=== PATIENT | male | born 1940 | race Caucasian/White ===

== ENCOUNTER 2018-05-27 03:09 | Inpatient (IN) | payer MEDICARE, MEDICAID ==
[~2018-05-27] VITALS: Ht 177.8 cm; Wt 89.4 kg
[2018-05-27] MEDS: NOREPINEPHRINE 4 MG in SODIUM CHLORIDE 0.9% 246 ML IV PRN ×2 (03:15→13:42)
--- NOTE | 2018-05-27 03:15 | NUR ---
PT PRESENTS TO ED FROM [facility], FROM AMBULANCE. BROUGHT TO [facility] ED FOR NOT ABLE TO GET OUT OF BED AND APPEARED CYANOTIC. GIVEN 1 ROUND OF ALBUTEROL AND PLACED ON 10 L NRB. IN [facility], DX W/ SEPTIC PNEUMONIA W/ SEVERE HYPOXIA. 1 G ROCEPHIN AND 500 MG ZITHROMAX GIVEN IN [facility] WELL ANOTHER ALBUTEROL TX. PT PLACED ON LEVO TX OF 8 MCG/MIN FOR HYPOTENSION. PT TAKEN OFF BIPAP PRIOR TO ARRIVAL TO THIS ED. PT 82-96% ON NRB 15L IN ED UPON ARRIVAL. PT TITRATED TO 6 MCG/MIN LEVOPHED PER MD ORDER UPON ADMIT TO ED TO ATTEMPT TO TITRATE PT OFF OF LEVO PERIPHERAL.
--- NOTE | 2018-05-27 03:19 | NUR ---
PT SIGNED CONSENT FOR CENTRAL LINE WHILE STILL A+Ox4.
--- NOTE | 2018-05-27 03:20 | NUR ---
PT APPEARING TO BE MORE AND MORE RESTLESS AND NO LONGER A+Ox4. PT SATS IN LOW 80'S-LOW 90'S ON NRB. MD AND RT NOTIFIED AND PT PLACED IN BIPAP.
--- NOTE | 2018-05-27 03:25 | NUR ---
PT BP STILL MAINTAINED ABOVE MAP OF 60 AND MD ORDERED LEVO PERIPHERAL DOWN TO 4MCG/MIN. DROPPED TO 4MCG/MIN AT THIS TIME.
[2018-05-27] MEDS ORDERED: SODIUM CHLORIDE FLUSH 10ML SYR IVF ONE (03:30)
--- NOTE | 2018-05-27 03:33 | NUR ---
PT DESAT TO MID 80'S AT THIS TIME AND APPEARING RESTLESS AND NOT ANSWERING QUESTIONS FROM STAFF. MD NOTIFIED AND RSI INITIATED PER MD AT THIS TIME.
[2018-05-27 03:37] LABS: BASOPHILS % (AUTO) 0 % (0-1); EOSINOPHILS % (AUTO) 0 % (1-7); LYMPHOCYTES # (AUTO) 0.35 x10^3/uL (1-3.4); LYMPHOCYTES % (AUTO) 5 % (22-44); MD NO; MEAN CORPUSCULAR HEMOGLOBIN 31.4 pg (27.5-34.5); MEAN CORPUSCULAR VOLUME 95.3 fL (81-97); MONOCYTES # (AUTO) 0.05 x10^3/uL (0.2-0.8); MONOCYTES % (AUTO) 1 % (2-9); NEUTROPHILS % (AUTO) 94 % (42-75); PLATELET COUNT 207 x10^3/uL (130-400); RED BLOOD COUNT 4.89 x10^6/uL (4.38-5.82)
--- NOTE | 2018-05-27 03:40 | NUR ---
PT TUBED SUCCESSFULLY W/ 160 MG OF SUCCINYLCHOLINE AND 20 MG OF ETOMIDATE PER EMERGENT INTUBATION. Addendum: 05/27/18 at 0523 by [email or web address] PT TUBED SUCCESSFULLY W/ 160 MG OF SUCCINYLCHOLINE AND 20 MG OF ETOMIDATE PER EMERGENT INTUBATION. AUSCULATION OF ET EQUAL RISE AND FALL OF CHEST AND CLEAR BREATH SOUNDS IN ALL ANDERSON. PROPER COLOR CHANGE IN CO2 INDICATOR. Addendum: 05/27/18 at 0531 by [email or web address] PT TUBED SUCCESSFULLY W/ 160 MG OF SUCCINYLCHOLINE AND 20 MG OF ETOMIDATE PER ERP ADMIN.
--- NOTE | 2018-05-27 03:40 | NUR ---
PT BP DROPPED TO INSUFFICIENT BP AND LEVO INCREASED TO 6 MCG/MIN.
--- NOTE | 2018-05-27 03:40 | NUR ---
28 AT THE LIP FOR ET TUBE.
[2018-05-27 03:48] LABS: INTERNATIONAL NORMALIZED RATIO 1.25 (0.93-1.1)
--- NOTE | 2018-05-27 03:48 | NUR ---
OG TUBE PLACED AND CONFIRMED BY AUSCULTATION AND AND ASPIRATION. CATHETER W/ TEMP PROBED APPLIED VIA STERILE TECHNIQUE AND PT SOFT RESTRAINTS APPLIED FOR PT SAFETY.
[2018-05-27 03:49] LABS: ALANINE AMINOTRANSFERASE 27 U/L (12-78); ALBUMIN 3.4 g/dL (3.4-5.0); ANION GAP 5 mmol/L (5-15); CHLORIDE 113 mmol/L (98-107)
[2018-05-27 03:54] LABS: ALKALINE PHOSPHATASE 86 U/L (45-117); BILIRUBIN,TOTAL 0.5 mg/dL (0.2-1.0); CREATININE 1.87 mg/dL (0.7-1.3); TOTAL PROTEIN 6.8 g/dL (6.4-8.2); TROPONIN I 0.059 ng/mL (0.000-0.045)
--- NOTE | 2018-05-27 03:55 | NUR ---
PT FIGHTING VENT AND PROPOFOL UNABLE TO BE STARTED DUE TO PRESSURE. 5 MG VERSED PUSHED FOR PT COMFORTABILITY, PER MD ORDER. RESPONDED WELL TO MED.
[2018-05-27] MEDS ORDERED: SUCCINYLCHOLINE 20 MG/ML, 10ML IVPush ONE (04:00)
[2018-05-27] MEDS ORDERED: LORazepam 2 MG/ML, 1ML IVPush ONE (04:00)
[2018-05-27] MEDS ORDERED: MIDAZOLAM 1 MG/ML, 5ML IVP ONE (04:00)
[2018-05-27] MEDS ORDERED: ETOMIDATE 20 MG/10 ML IV ONE (04:00)
--- NOTE | 2018-05-27 04:02 | NUR ---
5 MG VERSED PUSHED AT THIS TIME FOR FIGHTING VENT PER MD ORDER.
[2018-05-27] MEDS: PROPOFOL 100 ML IV PRN ×3 (04:06→18:32)
--- NOTE | 2018-05-27 04:06 | NUR ---
PT BP ACCEPTABLE FOR PROPOFOL AND 5MCG/KG/MIN INITIATED PER MD ORDER.
--- NOTE | 2018-05-27 04:08 | NUR ---
CENTRAL LINE INITIATED AT THIS TIME AND AWAITING XR FOR USE OF LEVOPHED.
--- NOTE | 2018-05-27 04:28 | NUR ---
CENTRAL LINE OKAYED BY XR AND ERP ORDER. LEVOPHED INITIATED ON CENTRAL LINE.
[2018-05-27] MEDS ORDERED: FUROSEMIDE 40 MG/4 ML IV ONE (04:30)
[2018-05-27] MEDS ORDERED: SODIUM CHLORIDE 0.9% 1,000ML IVBOLUS ONE (04:30)
[2018-05-27] MEDS ORDERED: ASPIRIN 300 MG SUPP PR ONE (04:30)
[2018-05-27] MEDS ORDERED: FUROSEMIDE 20 MG/2 ML ONE (04:58)
--- NOTE | 2018-05-27 05:05 | NUR ---
VSS ON ALL DRIPS AND PT TOLERATING TREATMENT WELL. WCTM.
--- NOTE | 2018-05-27 05:45 | NUR ---
AWAITING ADM BED. PT VSS. WCTM.
--- NOTE | 2018-05-27 06:10 | NUR ---
[employer]ING [employer] AT BEDSIDE AT THIS TIME.
[2018-05-27 06:26] LABS: MICROSCOPIC INDICATED
[2018-05-27] MEDS ORDERED: SENNA/DOCUSATE TABLET NG PRN (06:30)
[2018-05-27] MEDS ORDERED: ACETAMINOPHEN 650 MG/20.3 ML UDC NG PRN (06:30)
[2018-05-27] MEDS ORDERED: PHARMACY MAY ADJ FOR RENAL FX MC SCH (06:30)
[2018-05-27] MEDS ORDERED: BISACODYL 10 MG SUPP PR PRN (06:30)
[2018-05-27] MEDS ORDERED: LIDOCAINE-MPF 1%, 2ML ENDO PRN (06:30)
[2018-05-27] MEDS ORDERED: SODIUM CHLORIDE 0.9% 1,000 ML IV SCH (06:30)
[2018-05-27] MEDS ORDERED: SENNOSIDES 8.8 MG/5 ML ORAL SOL NG PRN (06:30)
[2018-05-27] MEDS ORDERED: LACTULOSE 20 GM/30 ML UDC NG PRN (06:30)
[2018-05-27 06:36] LABS: CULTURE INDICATED? YES
[2018-05-27] MEDS ORDERED: HEPARIN 5,000 UNITS/ML, 1ML ONE (06:39)
[2018-05-27] MEDS: HEPARIN 5,000 UNITS/ML, 1ML SQ SCH ×3 (06:44→22:04)
[2018-05-27] MEDS ORDERED: CEFTRIAXONE PMX 2GM/50ML 50 ML IV SCH (07:00)
--- NOTE | 2018-05-27 07:06 | NUR ---
RECEIVED REPORT FROM STANISLAW OLSEN RN. PT RESTING ON [facility]. NADN. FOURNIER.
--- NOTE | 2018-05-27 07:08 | NUR ---
BEDSIDE REPORT TO ABUNDIO BYRD.
--- NOTE | 2018-05-27 08:19 | NUR ---
PT RESTING ON [facility]. CECILIA. VSS. VENT IN PLACE.
[2018-05-27] MEDS ORDERED: CEFTRIAXONE PMX 2GM/50ML 50 ML ONE (08:23)
[2018-05-27] MEDS ORDERED: methylPREDNISolone SOD SUCC 125 MG/2 ML ONE ×2 (08:23→15:23)
[2018-05-27] MEDS ORDERED: PANTOPRAZOLE 40 MG IV ONE (08:23)
[2018-05-27] MEDS: methylPREDNISolone SOD SUCC 125 MG/2 ML IVPush SCH ×2 (08:26→15:29)
[2018-05-27] MEDS: PANTOPRAZOLE 40 MG IV IV SCH (08:26)
--- NOTE | 2018-05-27 08:46 | NUR ---
PT REPOSITIONED FOR COMFORT. BUE ROM PERFORMED. PT RESTING ON GURNEY. NADN. VSS. PT REMAINS INTUBATED.
--- NOTE | 2018-05-27 09:54 | NUR ---
SPOKE W/ DR. WATTS WHO STATES TO DO ALL XR'S AND TO CHANGE ABD/PELVIS W/O CONT TO ABD/PELVIS CT W/ ORAL CONTRAST.
--- NOTE | 2018-05-27 10:04 | NUR ---
PT COUGHING. MEDS READJUSTED. HOUSEKEEPING NOTIFIED OF NEED FOR HOSPITAL BED.
--- NOTE | 2018-05-27 10:40 | NUR ---
RECEIVED REPORT FROM ABUNDIO Masters RN. ET 28 AT THE [facility], 8 ET TUBE. VENTILATOR SETTINGS: PEEP 5, TV 500, 18 RESP, 80%.
[2018-05-27] MEDS ORDERED: PROPOFOL 100 ML IV ONE (10:43)
--- NOTE | 2018-05-27 11:00 | NUR ---
PT CHEWING ON ET TUBE. PROPOFOL SEDATION INCREASED.
--- NOTE | 2018-05-27 11:07 | NUR ---
PT MOVED TO HOSPITAL BED. REMAINDER OF ORAL CONTRAST GIVEN. WAITING FOR CCU BED AND CT TO BE DONE.
--- NOTE | 2018-05-27 11:09 | NUR ---
REPORT GIVEN TO DASHAWN Zuniga RN.
--- NOTE | 2018-05-27 11:13 | NUR ---
OUTPUT: 1300 OF URINE. INPUT: 900 OF ORAL CONTRAST AND 120 OF WATER.
--- NOTE | 2018-05-27 11:14 | NUR ---
RT SAIRA AT BEDSIDE. ET TUBE PULLED BACK TO 24 AT THE LIP.
[2018-05-27] MEDS ORDERED: ROCURONIUM 10 MG/ML,10ML ONE (11:19)
[2018-05-27] MEDS ORDERED: PROPOFOL 10 MG/ML, 50ML ONE (11:19)
[2018-05-27] MEDS ORDERED: FURO20TA3 PO (11:23)
[2018-05-27] MEDS ORDERED: ROSU40TA PO (11:23)
[2018-05-27] MEDS ORDERED: EZET1TAB35 PO (11:23)
[2018-05-27] MEDS ORDERED: MULT-658 PO (11:23)
[2018-05-27] MEDS ORDERED: NIAC750T11 PO (11:23)
[2018-05-27] MEDS ORDERED: ASPI-496 PO (11:23)
--- NOTE | 2018-05-27 11:24 | NUR ---
EQUAL BREATH SOUNDS BILATERALLY AUSCULATED AFTER MOVEMENT OF ET TUBE.
[2018-05-27 11:51] LABS: TROPONIN I 0.042 ng/mL (0.000-0.045)
--- NOTE | 2018-05-27 12:19 | NUR ---
PT TO AND FROM CT FOR CT ABD. DR. REYNOLDS AT BEDSIDE. ABDOMEN APPEARS TO HAVE SWOLLEN MORE. NO BOWEL SOUNDS DETECTED. SINCE CT ABD WAS DONE, LOW INTERMITTENT SUCTION APPLIEN TO OG TUBE.
--- NOTE | 2018-05-27 12:48 | NUR ---
REQUESTED OF DR. WATTS ABG DUE TO ET COS HOLDING STEADY AT 24. PT RATE TO BE DROPPED TO 16 AND ABG WILL BE DONE 15 MINUTES LATER.
[2018-05-27] MEDS ORDERED: ONDANSETRON 2MG/ML, 2ML IVPush PRN (13:00)
[2018-05-27] MEDS: SODIUM CHLORIDE 0.9% 1,000 ML IV SCH ×2 (13:09→23:50)
[2018-05-27 13:26] LABS: ANION GAP 11 mmol/L (5-15); CHLORIDE 112 mmol/L (98-107); CREATININE 1.73 mg/dL (0.7-1.3)
--- NOTE | 2018-05-27 13:35 | NUR ---
RT AT BEDSIDE COMPLETING MOUTHCARE.
[2018-05-27] MEDS ORDERED: PIPERACILLIN/TAZO/PMX 3.375GM 50 ML ONE (13:43)
[2018-05-27] MEDS: PIPERACILLIN/TAZO/PMX 3.375GM 50 ML IV SCH ×2 (13:46→22:04)
--- NOTE | 2018-05-27 13:56 | NUR ---
800 MLS OF CLEAR FLUID SUCTIONED FROM OG TUBE WITH LOW,INTERMIITENT SUCTION SINCE OG WAS PLACED.
--- NOTE | 2018-05-27 13:59 | NUR ---
PT SCHEDULED TO GO TO SURGERY AT [address] ABDOMEN[address]
[2018-05-27] MEDS ORDERED: VANCOMYCIN PMX 1GM/200ML 200 ML IV ONE (14:00)
[2018-05-27] MEDS ORDERED: VANCOMYCIN PER PHARMACY MC PRN (14:00)
[2018-05-27] MEDS ORDERED: PROPOFOL 10 MG/ML, 100ML IV ONE (14:02)
[2018-05-27] MEDS ORDERED: MIDAZOLAM 1 MG/ML, 5ML ONE (14:02)
[2018-05-27] MEDS ORDERED: ETOMIDATE 20 MG/10 ML ONE (14:02)
[2018-05-27] MEDS ORDERED: SUCCINYLCHOLINE 20 MG/ML, 10ML ONE (14:02)
--- NOTE | 2018-05-27 14:17 | NUR ---
REPORT TO LONNIE BYRD IN SURGERY. PT TO GO TO SURGERY AT 1515.
--- NOTE | 2018-05-27 14:18 | NUR ---
ECHO BEING DONE AT BEDSIDE.
[2018-05-27] MEDS ORDERED: VANCOMYCIN 2,000 MG in SODIUM CHLORIDE 0.9% 500 ML IV ONE (14:30)
[2018-05-27] MEDS ORDERED: VANCOMYCIN 1,800 MG in SODIUM CHLORIDE 0.9% 250 ML IV ONE (14:30)
[2018-05-27 15:11] LABS: TROPONIN I 0.045 ng/mL (0.000-0.045)
--- NOTE | 2018-05-27 15:41 | NUR ---
EARNESTINE RN: PT TO GO TO ICU-9 AFTER OR.
--- NOTE | 2018-05-27 15:44 | NUR ---
PT TAKEN TO SURGERY WHILE THIS RN WAS GIVEN TO REPORT TO RAOUL IN ICU.
[2018-05-27] MEDS ORDERED: MIDAZOLAM 1 MG/ML, 2ML ONE ×2 (16:07)
[2018-05-27] MEDS ORDERED: FENTANYL PF 100 MCG/2ML ONE (16:13)
[2018-05-27] MEDS ORDERED: PHARMACOKINETIC CONSULTATION MC ONE (18:30)
[2018-05-27] MEDS ORDERED: PHARMACOKINETIC MONITORING MC PRN (18:30)
[2018-05-27] MEDS ORDERED: NOREPINEPHRINE 4 MG in SODIUM CHLORIDE 0.9% 246 ML IV PRN (21:30)
[2018-05-27 21:38] LABS: TROPONIN I 0.044 ng/mL (0.000-0.045)
[2018-05-27 22:30] VITALS: BP 126/85
[2018-05-28] MEDS: methylPREDNISolone SOD SUCC 125 MG/2 ML IVPush SCH ×2 (00:13→07:32)
[2018-05-28] MEDS: PROPOFOL 100 ML IV PRN ×3 (01:54→18:00)
[2018-05-28] MEDS: NOREPINEPHRINE 8 MG in SODIUM CHLORIDE 0.9% 242 ML IV PRN ×2 (03:35→22:18)
[2018-05-28 04:00] VITALS: BP 84/64
[2018-05-28 04:40] LABS: ANION GAP 8 mmol/L (5-15); CALCIUM 7.5 mg/dL (8.5-10.1); CHLORIDE 114 mmol/L (98-107); CREATININE 1.83 mg/dL (0.7-1.3)
[2018-05-28 04:50] LABS: MEAN CORPUSCULAR HEMOGLOBIN 31.3 pg (27.5-34.5); MEAN CORPUSCULAR HGB CONC 33.5 g/dL (33.2-36.2); MEAN CORPUSCULAR VOLUME 93.4 fL (81-97); MEAN PLATELET VOLUME 9.2 fL (7.4-10.4); PLATELET COUNT 227 x10^3/uL (130-400); RED BLOOD COUNT 4.96 x10^6/uL (4.38-5.82); RED CELL DISTRIBUTION WIDTH 16.9 % (9.4-14.8)
[2018-05-28 05:37] LABS: BASOPHILS % (AUTO) 0 % (0-1); EOSINOPHILS % (AUTO) 0 % (1-7); LYMPHOCYTES # (AUTO) 0.37 x10^3/uL (1-3.4); LYMPHOCYTES % (AUTO) 3 % (22-44); MD SCAN; MONOCYTES # (AUTO) 0.34 x10^3/uL (0.2-0.8); MONOCYTES % (AUTO) 3 % (2-9); NEUTROPHILS # (AUTO) 13.03 x10^3/uL (1.8-6.8); NEUTROPHILS % (AUTO) 95 % (42-75)
[2018-05-28] MEDS: HEPARIN 5,000 UNITS/ML, 1ML SQ SCH ×3 (06:04→23:11)
[2018-05-28] MEDS: PIPERACILLIN/TAZO/PMX 3.375GM 50 ML IV SCH ×3 (06:11→22:47)
[2018-05-28] MEDS: PANTOPRAZOLE 40 MG IV IV SCH (07:33)
[2018-05-28 11:38] LABS: CLOSTRIDIUM DIFFICILE ANTIGEN NEGATIVE; CLOSTRIDIUM DIFFICILE TOXIN NEGATIVE (Negative)
[2018-05-28] MEDS ORDERED: VASOPRESSIN 100 UNIT in SODIUM CHLORIDE 0.9% 495 ML IV PRN ×2 (12:30→20:00)
[2018-05-28] MEDS: LACTATED RINGERS 1,000 ML IV SCH (13:36)
[2018-05-28] MEDS: methylPREDNISolone SOD SUCC 40 MG/ML IVPush SCH ×2 (15:05→23:11)
--- NOTE | 2018-05-28 18:28 | NUR ---
TF GOAL IF NEEDED -> Promote at 75 ml/hr on propofol, 80 ml/hr off propofol Addendum: 05/28/18 at [address] Amended: Links added.
[2018-05-28] MEDS ORDERED: AMIODARONE 150 MG in DEXTROSE 5% 100 ML IV ONE (19:47)
[2018-05-28] MEDS ORDERED: VASOPRESSIN 50 UNIT in SODIUM CHLORIDE 0.9% 247.5 ML IV PRN (20:00)
[2018-05-28] MEDS: AMIODARONE 900 MG in DEXTROSE 5% 482 ML IV SCH (20:13)
[2018-05-28] MEDS: FILTER 0.22 MICRON IV PRN (20:36)
[2018-05-28] MEDS ORDERED: ALBUMIN HUMAN 25% 100 ML IV ONE (21:00)
[2018-05-29 00:22] LABS: ANION GAP 7 mmol/L (5-15); CALCIUM 7.8 mg/dL (8.5-10.1); CHLORIDE 114 mmol/L (98-107); CREATININE 1.77 mg/dL (0.7-1.3)
[2018-05-29 00:52] LABS: TROPONIN I 0.054 ng/mL (0.000-0.045)
[2018-05-29] MEDS ORDERED: VANCOMYCIN 2,000 MG in SODIUM CHLORIDE 0.9% 500 ML IV SCH (02:00)
[2018-05-29 04:00] VITALS: BP 124/76
[2018-05-29 05:15] LABS: BASOPHILS # (AUTO) 0.01 x10^3/uL (0-0.1); BASOPHILS % (AUTO) 0 % (0-1); EOSINOPHILS % (AUTO) 0 % (1-7); LYMPHOCYTES # (AUTO) 0.47 x10^3/uL (1-3.4); LYMPHOCYTES % (AUTO) 5 % (22-44); MD NO; MEAN CORPUSCULAR HEMOGLOBIN 31.1 pg (27.5-34.5); MEAN CORPUSCULAR HGB CONC 33.2 g/dL (33.2-36.2); MEAN CORPUSCULAR VOLUME 93.5 fL (81-97); MEAN PLATELET VOLUME 9.6 fL (7.4-10.4); MONOCYTES # (AUTO) 0.69 x10^3/uL (0.2-0.8); MONOCYTES % (AUTO) 7 % (2-9); NEUTROPHILS # (AUTO) 8.23 x10^3/uL (1.8-6.8); NEUTROPHILS % (AUTO) 88 % (42-75); PLATELET COUNT 232 x10^3/uL (130-400); RED BLOOD COUNT 4.61 x10^6/uL (4.38-5.82)
[2018-05-29 05:17] LABS: ANION GAP 8 mmol/L (5-15); CALCIUM 7.7 mg/dL (8.5-10.1); CHLORIDE 115 mmol/L (98-107)
[2018-05-29 05:18] LABS: CREATININE 1.72 mg/dL (0.7-1.3)
[2018-05-29] MEDS: PIPERACILLIN/TAZO/PMX 3.375GM 50 ML IV SCH ×3 (06:03→23:51)
[2018-05-29] MEDS: LACTATED RINGERS 1,000 ML IV SCH (06:04)
[2018-05-29] MEDS: HEPARIN 5,000 UNITS/ML, 1ML SQ SCH ×3 (06:05→23:51)
[2018-05-29] MEDS: methylPREDNISolone SOD SUCC 40 MG/ML IVPush SCH ×3 (06:42→23:52)
[2018-05-29] MEDS: PROPOFOL 100 ML IV PRN ×2 (06:42→19:09)
[2018-05-29] MEDS: FENTANYL PF 100 MCG/2ML IVPush PRN ×3 (08:25→20:40)
[2018-05-29] MEDS: PANTOPRAZOLE 40 MG IV IV SCH (08:25)
[2018-05-29] MEDS ORDERED: TPN PER PHARMACY MC PRN (09:30)
[2018-05-29] MEDS ORDERED: SODIUM CHLORIDE 0.9%, 500ML IVBOLUS ONE ×2 (10:30→15:00)
[2018-05-29] MEDS: NOREPINEPHRINE 8 MG in SODIUM CHLORIDE 0.9% 242 ML IV PRN (11:10)
[2018-05-29] MEDS: FILTER, DISP 1.2 MICRON FOR TPN/PVN IV PRN (14:58)
[2018-05-29] MEDS ORDERED: SMOF TPN IV SCH (17:00)
[2018-05-29] MEDS ORDERED: [UNRECOGNIZED DRUG - OTHER] IV SCH (17:00)
[2018-05-29] MEDS ORDERED: DEXTROSE 70% IV SCH (17:00)
[2018-05-29] MEDS ORDERED: FAT EMUL IV SCH (17:00)
[2018-05-29] MEDS ORDERED: AMINO ACID 10% IV SCH (17:00)
[2018-05-29] MEDS: AMIODARONE 900 MG in DEXTROSE 5% 482 ML IV SCH (20:28)
[2018-05-29] MEDS: FILTER 0.22 MICRON IV PRN (20:28)
[2018-05-30 04:00] VITALS: BP 101/60
[2018-05-30 04:41] LABS: MEAN CORPUSCULAR HEMOGLOBIN 31.5 pg (27.5-34.5); MEAN CORPUSCULAR HGB CONC 33.2 g/dL (33.2-36.2); MEAN CORPUSCULAR VOLUME 95.1 fL (81-97); RED BLOOD COUNT 4.09 x10^6/uL (4.38-5.82); RED CELL DISTRIBUTION WIDTH 16.8 % (9.4-14.8)
[2018-05-30 04:45] LABS: ANION GAP 5 mmol/L (5-15); CALCIUM 7.7 mg/dL (8.5-10.1); CHLORIDE 113 mmol/L (98-107)
[2018-05-30 04:56] LABS: MEAN PLATELET VOLUME 9.4 fL (7.4-10.4); PLATELET COUNT 158 x10^3/uL (130-400)
[2018-05-30 04:57] LABS: BASOPHILS # (AUTO) 0.01 x10^3/uL (0-0.1); BASOPHILS % (AUTO) 0 % (0-1); CREATININE 1.39 mg/dL (0.7-1.3); EOSINOPHILS % (AUTO) 0 % (1-7); LYMPHOCYTES % (AUTO) 3 % (22-44); MD SCAN; MONOCYTES # (AUTO) 0.43 x10^3/uL (0.2-0.8); MONOCYTES % (AUTO) 6 % (2-9); NEUTROPHILS % (AUTO) 91 % (42-75); PREALBUMIN 10.2 mg/dL (20.0-40.0); THYROID STIMULATING HORMONE 0.573 mIU/L (0.358-3.740); TRIGLYCERIDES 130 mg/dL (50-200)
[2018-05-30] MEDS ORDERED: DEXTROSE 50%, 50ML SYRINGE IVPush PRN (06:00)
[2018-05-30] MEDS ORDERED: DEXTROSE 10% 500 ML IV PRN (06:00)
[2018-05-30] MEDS: INSULIN REGULAR MEDIUM DOSE QDAY SQ-INSULIN SCH ×2 (06:25→17:00)
[2018-05-30] MEDS: methylPREDNISolone SOD SUCC 40 MG/ML IVPush SCH (07:00)
[2018-05-30] MEDS: HEPARIN 5,000 UNITS/ML, 1ML SQ SCH ×3 (08:36→22:54)
[2018-05-30] MEDS: PANTOPRAZOLE 40 MG IV IV SCH (08:36)
[2018-05-30] MEDS: PROPOFOL 100 ML IV PRN ×2 (08:36→19:26)
[2018-05-30] MEDS ORDERED: FUROSEMIDE 40 MG/4 ML IV ONE (09:00)
[2018-05-30] MEDS ORDERED: LACTATED RINGERS 1,000 ML IV SCH (09:30)
[2018-05-30] MEDS: FENTANYL PF 100 MCG/2ML IVPush PRN (10:52)
[2018-05-30] MEDS ORDERED: SMOF TPN IV SCH (17:00)
[2018-05-30] MEDS ORDERED: FAT EMUL IV SCH (17:00)
[2018-05-30] MEDS ORDERED: DEXTROSE 70% IV SCH (17:00)
[2018-05-30] MEDS ORDERED: [UNRECOGNIZED DRUG - OTHER] IV SCH (17:00)
[2018-05-30] MEDS ORDERED: AMINO ACID 10% IV SCH (17:00)
[2018-05-30] MEDS: FILTER, DISP 1.2 MICRON FOR TPN/PVN IV PRN (18:45)
[2018-05-31] MEDS: FENTANYL PF 100 MCG/2ML IVPush PRN (00:28)
[2018-05-31 04:35] LABS: BASOPHILS # (AUTO) 0.01 x10^3/uL (0-0.1); BASOPHILS % (AUTO) 0 % (0-1); EOSINOPHILS % (AUTO) 0 % (1-7); LYMPHOCYTES # (AUTO) 0.23 x10^3/uL (1-3.4); LYMPHOCYTES % (AUTO) 3 % (22-44); MD NO; MEAN CORPUSCULAR HEMOGLOBIN 31.4 pg (27.5-34.5); MEAN CORPUSCULAR HGB CONC 33.4 g/dL (33.2-36.2); MEAN CORPUSCULAR VOLUME 94.3 fL (81-97); MEAN PLATELET VOLUME 9.4 fL (7.4-10.4); MONOCYTES # (AUTO) 0.39 x10^3/uL (0.2-0.8); MONOCYTES % (AUTO) 6 % (2-9); NEUTROPHILS # (AUTO) 6.45 x10^3/uL (1.8-6.8); NEUTROPHILS % (AUTO) 91 % (42-75); PLATELET COUNT 136 x10^3/uL (130-400); RED BLOOD COUNT 4.02 x10^6/uL (4.38-5.82); RED CELL DISTRIBUTION WIDTH 16.6 % (9.4-14.8)
[2018-05-31 04:48] LABS: ANION GAP 7 mmol/L (5-15); CALCIUM 7.6 mg/dL (8.5-10.1); CHLORIDE 112 mmol/L (98-107); CREATININE 1.15 mg/dL (0.7-1.3)
[2018-05-31] MEDS: INSULIN REGULAR MEDIUM DOSE QDAY SQ-INSULIN SCH ×2 (05:00→17:00)
[2018-05-31] MEDS: HEPARIN 5,000 UNITS/ML, 1ML SQ SCH ×3 (06:41→22:21)
[2018-05-31] MEDS: PROPOFOL 100 ML IV PRN ×2 (06:41→22:21)
[2018-05-31] MEDS: FUROSEMIDE 20 MG/2 ML IV SCH ×2 (07:59→18:37)
[2018-05-31] MEDS: PANTOPRAZOLE 40 MG IV IV SCH (07:59)
[2018-05-31 16:09] LABS: ANION GAP 4 mmol/L (5-15); CALCIUM 7.7 mg/dL (8.5-10.1); CHLORIDE 110 mmol/L (98-107); CREATININE 1.12 mg/dL (0.7-1.3)
[2018-05-31] MEDS ORDERED: FAT EMUL IV SCH (17:00)
[2018-05-31] MEDS ORDERED: SMOF TPN IV SCH (17:00)
[2018-05-31] MEDS ORDERED: DEXTROSE 70% IV SCH (17:00)
[2018-05-31] MEDS ORDERED: AMINO ACID 10% IV SCH (17:00)
[2018-05-31] MEDS ORDERED: [UNRECOGNIZED DRUG - OTHER] IV SCH (17:00)
[2018-05-31] MEDS ORDERED: POTASSIUM CHLORIDE PMX 100 ML IV ONE (17:00)
[2018-05-31] MEDS: FILTER, DISP 1.2 MICRON FOR TPN/PVN IV PRN (20:20)
[2018-05-31] MEDS: NOREPINEPHRINE 8 MG in SODIUM CHLORIDE 0.9% 242 ML IV PRN (22:21)
[2018-06-01 04:48] LABS: BASOPHILS # (AUTO) 0.02 x10^3/uL (0-0.1); BASOPHILS % (AUTO) 0 % (0-1); EOSINOPHILS # (AUTO) 0.01 x10^3/uL (0-0.4); EOSINOPHILS % (AUTO) 0 % (1-7); LYMPHOCYTES # (AUTO) 0.31 x10^3/uL (1-3.4); LYMPHOCYTES % (AUTO) 5 % (22-44); MD NO; MEAN CORPUSCULAR HEMOGLOBIN 31.4 pg (27.5-34.5); MEAN CORPUSCULAR HGB CONC 33.3 g/dL (33.2-36.2); MEAN CORPUSCULAR VOLUME 94.3 fL (81-97); MEAN PLATELET VOLUME 9.5 fL (7.4-10.4); MONOCYTES # (AUTO) 0.53 x10^3/uL (0.2-0.8); MONOCYTES % (AUTO) 8 % (2-9); NEUTROPHILS # (AUTO) 6.02 x10^3/uL (1.8-6.8); NEUTROPHILS % (AUTO) 87 % (42-75); PLATELET COUNT 158 x10^3/uL (130-400); RED BLOOD COUNT 4.07 x10^6/uL (4.38-5.82); RED CELL DISTRIBUTION WIDTH 16.7 % (9.4-14.8)
[2018-06-01 04:59] LABS: ALANINE AMINOTRANSFERASE 33 U/L (12-78); ALBUMIN 2.1 g/dL (3.4-5.0); ANION GAP 6 mmol/L (5-15); CALCIUM 7.5 mg/dL (8.5-10.1); CHLORIDE 111 mmol/L (98-107); CREATININE 0.94 mg/dL (0.7-1.3)
[2018-06-01] MEDS: INSULIN REGULAR MEDIUM DOSE QDAY SQ-INSULIN SCH ×2 (05:00→17:00)
[2018-06-01 05:02] LABS: ALKALINE PHOSPHATASE 58 U/L (45-117); BILIRUBIN,TOTAL 0.8 mg/dL (0.2-1.0); TOTAL PROTEIN 4.9 g/dL (6.4-8.2)
[2018-06-01] MEDS: HEPARIN 5,000 UNITS/ML, 1ML SQ SCH ×3 (06:30→22:05)
[2018-06-01] MEDS: PROPOFOL 100 ML IV PRN (08:14)
[2018-06-01] MEDS: FUROSEMIDE 20 MG/2 ML IV SCH ×2 (08:14→17:19)
[2018-06-01] MEDS: PANTOPRAZOLE 40 MG IV IV SCH (08:14)
[2018-06-01] MEDS: AMIODARONE 900 MG in DEXTROSE 5% 482 ML IV SCH (08:19)
[2018-06-01] MEDS ORDERED: FILTER 0.22 MICRON IV PRN (09:00)
[2018-06-01] MEDS ORDERED: AMINO ACID 10% IV SCH (17:00)
[2018-06-01] MEDS ORDERED: SMOF TPN IV SCH (17:00)
[2018-06-01] MEDS ORDERED: DEXTROSE 70% IV SCH (17:00)
[2018-06-01] MEDS ORDERED: [UNRECOGNIZED DRUG - OTHER] IV SCH (17:00)
[2018-06-01] MEDS ORDERED: FAT EMUL IV SCH (17:00)
[2018-06-01] MEDS ORDERED: FILTER, DISP 1.2 MICRON FOR TPN/PVN IV PRN (17:00)
[2018-06-01] MEDS ORDERED: BENZOCAINE 20% SPRAY 0.5ML TP ONE (22:00)
[2018-06-02] MEDS: FENTANYL PF 100 MCG/2ML IVPush PRN (01:04)
[2018-06-02] MEDS: INSULIN REGULAR MEDIUM DOSE QDAY SQ-INSULIN SCH ×2 (05:00→09:00)
[2018-06-02 05:19] LABS: BASOPHILS % (AUTO) 0 % (0-1); EOSINOPHILS # (AUTO) 0.03 x10^3/uL (0-0.4); EOSINOPHILS % (AUTO) 1 % (1-7); LYMPHOCYTES # (AUTO) 0.35 x10^3/uL (1-3.4); LYMPHOCYTES % (AUTO) 5 % (22-44); MD NO; MEAN CORPUSCULAR HEMOGLOBIN 30.7 pg (27.5-34.5); MEAN CORPUSCULAR HGB CONC 32.9 g/dL (33.2-36.2); MEAN CORPUSCULAR VOLUME 93.4 fL (81-97); MEAN PLATELET VOLUME 9.4 fL (7.4-10.4); MONOCYTES # (AUTO) 0.57 x10^3/uL (0.2-0.8); MONOCYTES % (AUTO) 8 % (2-9); NEUTROPHILS # (AUTO) 6.58 x10^3/uL (1.8-6.8); NEUTROPHILS % (AUTO) 87 % (42-75); PLATELET COUNT 139 x10^3/uL (130-400); RED BLOOD COUNT 4.01 x10^6/uL (4.38-5.82); RED CELL DISTRIBUTION WIDTH 16.9 % (9.4-14.8)
[2018-06-02 05:28] LABS: ANION GAP 4 mmol/L (5-15); CALCIUM 7.6 mg/dL (8.5-10.1); CHLORIDE 107 mmol/L (98-107); CREATININE 0.91 mg/dL (0.7-1.3); TRIGLYCERIDES 101 mg/dL (50-200)
[2018-06-02] MEDS: HEPARIN 5,000 UNITS/ML, 1ML SQ SCH ×3 (06:06→21:14)
[2018-06-02] MEDS: PANTOPRAZOLE 40 MG IV IV SCH (08:20)
[2018-06-02] MEDS: FUROSEMIDE 20 MG/2 ML IV SCH ×2 (08:20→17:17)
[2018-06-02] MEDS: NOREPINEPHRINE 8 MG in SODIUM CHLORIDE 0.9% 242 ML IV PRN (10:07)
[2018-06-02] MEDS: AMIODARONE 900 MG in DEXTROSE 5% 482 ML IV SCH (16:32)
[2018-06-02] MEDS ORDERED: [UNRECOGNIZED DRUG - OTHER] IV SCH (17:00)
[2018-06-02] MEDS ORDERED: AMINO ACID 10% IV SCH (17:00)
[2018-06-02] MEDS ORDERED: FAT EMUL IV SCH (17:00)
[2018-06-02] MEDS ORDERED: FILTER, DISP 1.2 MICRON FOR TPN/PVN IV PRN (17:00)
[2018-06-02] MEDS ORDERED: DEXTROSE 70% IV SCH (17:00)
[2018-06-02] MEDS ORDERED: SMOF TPN IV SCH (17:00)
[2018-06-03 04:51] LABS: BASOPHILS # (AUTO) 0.01 x10^3/uL (0-0.1); BASOPHILS % (AUTO) 0 % (0-1); EOSINOPHILS # (AUTO) 0.14 x10^3/uL (0-0.4); EOSINOPHILS % (AUTO) 2 % (1-7); LYMPHOCYTES # (AUTO) 0.41 x10^3/uL (1-3.4); LYMPHOCYTES % (AUTO) 5 % (22-44); MD NO; MEAN CORPUSCULAR HEMOGLOBIN 31.4 pg (27.5-34.5); MEAN CORPUSCULAR HGB CONC 33.2 g/dL (33.2-36.2); MEAN CORPUSCULAR VOLUME 94.5 fL (81-97); MEAN PLATELET VOLUME 9.1 fL (7.4-10.4); MONOCYTES # (AUTO) 0.46 x10^3/uL (0.2-0.8); MONOCYTES % (AUTO) 6 % (2-9); NEUTROPHILS # (AUTO) 6.98 x10^3/uL (1.8-6.8); NEUTROPHILS % (AUTO) 87 % (42-75); PLATELET COUNT 137 x10^3/uL (130-400); RED BLOOD COUNT 3.99 x10^6/uL (4.38-5.82); RED CELL DISTRIBUTION WIDTH 16.3 % (9.4-14.8)
[2018-06-03] MEDS: HEPARIN 5,000 UNITS/ML, 1ML SQ SCH ×3 (04:56→21:42)
[2018-06-03 04:57] LABS: ANION GAP 4 mmol/L (5-15); CHLORIDE 105 mmol/L (98-107); CREATININE 0.76 mg/dL (0.7-1.3)
[2018-06-03] MEDS: INSULIN REGULAR MEDIUM DOSE QDAY SQ-INSULIN SCH (07:33)
[2018-06-03] MEDS: PANTOPRAZOLE 40 MG IV IV SCH (08:17)
[2018-06-03] MEDS: FUROSEMIDE 20 MG/2 ML IV SCH ×2 (08:17→17:02)
[2018-06-03 16:14] VITALS: BP 101/68
[2018-06-03] MEDS ORDERED: SMOF TPN IV SCH (17:00)
[2018-06-03] MEDS ORDERED: FILTER, DISP 1.2 MICRON FOR TPN/PVN IV PRN (17:00)
[2018-06-03] MEDS ORDERED: [UNRECOGNIZED DRUG - OTHER] IV SCH (17:00)
[2018-06-03] MEDS ORDERED: AMINO ACID 10% IV SCH (17:00)
[2018-06-03] MEDS ORDERED: FAT EMUL IV SCH (17:00)
[2018-06-03] MEDS ORDERED: DEXTROSE 70% IV SCH (17:00)
[2018-06-03 20:08] VITALS: BP 98/63
[2018-06-03] MEDS: AMIODARONE 200 MG TABLET NG SCH (21:42)
[2018-06-04 00:54] VITALS: BP 111/76
[2018-06-04] MEDS: HEPARIN 5,000 UNITS/ML, 1ML SQ SCH ×2 (06:38→14:30)
[2018-06-04 07:18] LABS: BASOPHILS % (AUTO) 0 % (0-1); EOSINOPHILS # (AUTO) 0.08 x10^3/uL (0-0.4); EOSINOPHILS % (AUTO) 1 % (1-7); LYMPHOCYTES # (AUTO) 0.29 x10^3/uL (1-3.4); LYMPHOCYTES % (AUTO) 4 % (22-44); MD NO; MEAN CORPUSCULAR HEMOGLOBIN 30.6 pg (27.5-34.5); MEAN CORPUSCULAR HGB CONC 32.1 g/dL (33.2-36.2); MEAN CORPUSCULAR VOLUME 95.2 fL (81-97); MEAN PLATELET VOLUME 9.4 fL (7.4-10.4); MONOCYTES # (AUTO) 0.54 x10^3/uL (0.2-0.8); MONOCYTES % (AUTO) 7 % (2-9); NEUTROPHILS # (AUTO) 6.59 x10^3/uL (1.8-6.8); NEUTROPHILS % (AUTO) 88 % (42-75); PLATELET COUNT 145 x10^3/uL (130-400); RED BLOOD COUNT 3.97 x10^6/uL (4.38-5.82); RED CELL DISTRIBUTION WIDTH 16.1 % (9.4-14.8)
[2018-06-04 07:29] LABS: ANION GAP 3 mmol/L (5-15); CALCIUM 8.2 mg/dL (8.5-10.1); CHLORIDE 103 mmol/L (98-107); CREATININE 0.85 mg/dL (0.7-1.3)
[2018-06-04 07:32] VITALS: BP 95/61
[2018-06-04] MEDS: INSULIN REGULAR MEDIUM DOSE QDAY SQ-INSULIN SCH (09:00)
[2018-06-04] MEDS: AMIODARONE 200 MG TABLET NG SCH ×2 (10:37→20:30)
[2018-06-04] MEDS: FUROSEMIDE 20 MG/2 ML IV SCH ×2 (10:37→17:31)
[2018-06-04] MEDS: PANTOPRAZOLE 40 MG IV IV SCH (10:37)
[2018-06-04 10:51] VITALS: BP 104/72
[2018-06-04 13:48] VITALS: BP 97/56
[2018-06-04] MEDS ORDERED: FAT EMUL IV SCH (17:00)
[2018-06-04] MEDS ORDERED: SMOF TPN IV SCH (17:00)
[2018-06-04] MEDS ORDERED: [UNRECOGNIZED DRUG - OTHER] IV SCH (17:00)
[2018-06-04] MEDS ORDERED: AMINO ACID 10% IV SCH (17:00)
[2018-06-04] MEDS ORDERED: DEXTROSE 70% IV SCH (17:00)
[2018-06-04] MEDS: ENOXAPARIN 100 MG/ML SQ SCH (17:31)
[2018-06-04 19:50] VITALS: BP 103/62
[2018-06-05 01:35] VITALS: BP 100/59
[2018-06-05] MEDS: ENOXAPARIN 100 MG/ML SQ SCH ×2 (04:33→18:10)
[2018-06-05 05:18] LABS: BASOPHILS % (AUTO) 0 % (0-1); EOSINOPHILS # (AUTO) 0.22 x10^3/uL (0-0.4); EOSINOPHILS % (AUTO) 3 % (1-7); LYMPHOCYTES % (AUTO) 4 % (22-44); MD NO; MEAN CORPUSCULAR HEMOGLOBIN 31.1 pg (27.5-34.5); MEAN CORPUSCULAR HGB CONC 32.6 g/dL (33.2-36.2); MEAN CORPUSCULAR VOLUME 95.4 fL (81-97); MEAN PLATELET VOLUME 9.4 fL (7.4-10.4); MONOCYTES # (AUTO) 0.58 x10^3/uL (0.2-0.8); MONOCYTES % (AUTO) 9 % (2-9); NEUTROPHILS # (AUTO) 5.72 x10^3/uL (1.8-6.8); NEUTROPHILS % (AUTO) 84 % (42-75); PLATELET COUNT 144 x10^3/uL (130-400); RED BLOOD COUNT 3.94 x10^6/uL (4.38-5.82); RED CELL DISTRIBUTION WIDTH 16.2 % (9.4-14.8)
[2018-06-05 05:41] LABS: ANION GAP 4 mmol/L (5-15); CALCIUM 8.7 mg/dL (8.5-10.1); CHLORIDE 105 mmol/L (98-107)
[2018-06-05 05:43] LABS: CREATININE 0.89 mg/dL (0.7-1.3); TRIGLYCERIDES 74 mg/dL (50-200)
[2018-06-05 07:51] VITALS: BP 100/58
[2018-06-05] MEDS: AMIODARONE 200 MG TABLET NG SCH ×2 (08:37→20:42)
[2018-06-05] MEDS: FUROSEMIDE 20 MG/2 ML IV SCH ×2 (08:37→18:09)
[2018-06-05] MEDS: PANTOPRAZOLE 40 MG IV IV SCH (08:38)
[2018-06-05] MEDS: INSULIN REGULAR MEDIUM DOSE QDAY SQ-INSULIN SCH (08:38)
[2018-06-05 12:35] VITALS: BP 100/65
--- NOTE | 2018-06-05 12:56 | NUR ---
REC PUREE/NTL; swallow precautions sheet at bedside Addendum: 06/05/18 at [address] Amended: Links added.
[2018-06-05] MEDS ORDERED: DEXTROSE 70% IV SCH (17:00)
[2018-06-05] MEDS ORDERED: FAT EMUL IV SCH (17:00)
[2018-06-05] MEDS ORDERED: AMINO ACID 10% IV SCH (17:00)
[2018-06-05] MEDS ORDERED: [UNRECOGNIZED DRUG - OTHER] IV SCH (17:00)
[2018-06-05] MEDS ORDERED: SMOF TPN IV SCH (17:00)
[2018-06-05 19:52] VITALS: BP 102/67
[2018-06-06 01:14] VITALS: BP 95/57
[2018-06-06] MEDS: ENOXAPARIN 100 MG/ML SQ SCH ×2 (04:23→18:28)
[2018-06-06 05:51] LABS: ALANINE AMINOTRANSFERASE 41 U/L (12-78); ALBUMIN 2.6 g/dL (3.4-5.0); ANION GAP 3 mmol/L (5-15); CHLORIDE 108 mmol/L (98-107); CREATININE 0.96 mg/dL (0.7-1.3)
[2018-06-06 05:54] LABS: ALKALINE PHOSPHATASE 76 U/L (45-117); BILIRUBIN,TOTAL 0.8 mg/dL (0.2-1.0); PREALBUMIN 17.5 mg/dL (20.0-40.0); TOTAL PROTEIN 5.8 g/dL (6.4-8.2)
[2018-06-06 06:56] VITALS: BP 97/65
[2018-06-06] MEDS: FUROSEMIDE 20 MG/2 ML IV SCH (09:02)
[2018-06-06] MEDS: AMIODARONE 200 MG TABLET NG SCH (09:02)
[2018-06-06] MEDS: PANTOPRAZOLE 40 MG IV IV SCH (09:02)
[2018-06-06 12:44] VITALS: BP 100/67
[2018-06-06 19:00] VITALS: BP 93/58
[2018-06-06] MEDS ORDERED: ACETAMINOPHEN 650 MG/20.3 ML UDC PO PRN (19:46)
[2018-06-06] MEDS ORDERED: SENNA/DOCUSATE TABLET PO PRN (19:47)
[2018-06-06] MEDS ORDERED: SENNOSIDES 8.8 MG/5 ML ORAL SOL PO PRN (19:48)
[2018-06-06] MEDS: AMIODARONE 200 MG TABLET PO SCH (21:48)
[2018-06-07] VITALS: BP 100/70
[2018-06-07 04:32] LABS: BASOPHILS # (AUTO) 0.01 x10^3/uL (0-0.1); BASOPHILS % (AUTO) 0 % (0-1); EOSINOPHILS % (AUTO) 0 % (1-7); LYMPHOCYTES % (AUTO) 5 % (22-44); MD NO; MEAN CORPUSCULAR HEMOGLOBIN 31.3 pg (27.5-34.5); MEAN CORPUSCULAR HGB CONC 32.6 g/dL (33.2-36.2); MEAN CORPUSCULAR VOLUME 95.9 fL (81-97); MEAN PLATELET VOLUME 9.2 fL (7.4-10.4); MONOCYTES # (AUTO) 0.52 x10^3/uL (0.2-0.8); MONOCYTES % (AUTO) 7 % (2-9); NEUTROPHILS # (AUTO) 6.65 x10^3/uL (1.8-6.8); NEUTROPHILS % (AUTO) 88 % (42-75); PLATELET COUNT 167 x10^3/uL (130-400); RED BLOOD COUNT 3.88 x10^6/uL (4.38-5.82); RED CELL DISTRIBUTION WIDTH 16.5 % (9.4-14.8)
[2018-06-07 04:45] LABS: CALCIUM 8.8 mg/dL (8.5-10.1); CHLORIDE 108 mmol/L (98-107); CREATININE 1.03 mg/dL (0.7-1.3)
[2018-06-07 04:52] LABS: ANION GAP 3 mmol/L (5-15)
[2018-06-07] MEDS: ENOXAPARIN 100 MG/ML SQ SCH ×2 (05:56→20:48)
[2018-06-07 06:49] VITALS: BP 94/60
[2018-06-07] MEDS: PANTOPRAZOLE 40 MG IV IV SCH (10:45)
[2018-06-07] MEDS: AMIODARONE 200 MG TABLET PO SCH ×2 (10:45→20:48)
[2018-06-07 13:18] VITALS: BP 98/68
[2018-06-07 18:56] VITALS: BP 114/70
[2018-06-08 00:42] VITALS: BP 107/71
[2018-06-08 06:09] LABS: BASOPHILS % (AUTO) 0 % (0-1); EOSINOPHILS % (AUTO) 0 % (1-7); LYMPHOCYTES # (AUTO) 0.35 x10^3/uL (1-3.4); LYMPHOCYTES % (AUTO) 4 % (22-44); MD NO; MEAN CORPUSCULAR HEMOGLOBIN 31.3 pg (27.5-34.5); MEAN CORPUSCULAR HGB CONC 32.8 g/dL (33.2-36.2); MEAN CORPUSCULAR VOLUME 95.4 fL (81-97); MEAN PLATELET VOLUME 9.7 fL (7.4-10.4); MONOCYTES # (AUTO) 0.41 x10^3/uL (0.2-0.8); MONOCYTES % (AUTO) 5 % (2-9); NEUTROPHILS # (AUTO) 7.49 x10^3/uL (1.8-6.8); NEUTROPHILS % (AUTO) 91 % (42-75); PLATELET COUNT 173 x10^3/uL (130-400); RED CELL DISTRIBUTION WIDTH 16.6 % (9.4-14.8)
[2018-06-08 06:15] LABS: CHLORIDE 110 mmol/L (98-107)
[2018-06-08 06:33] LABS: ANION GAP 3 mmol/L (5-15); CALCIUM 9.1 mg/dL (8.5-10.1); TRIGLYCERIDES 91 mg/dL (50-200)
[2018-06-08 08:01] VITALS: BP 110/69
[2018-06-08] MEDS: ENOXAPARIN 100 MG/ML SQ SCH ×2 (09:22→20:20)
[2018-06-08] MEDS: AMIODARONE 200 MG TABLET PO SCH ×2 (09:23→20:20)
[2018-06-08] MEDS: PANTOPRAZOLE 40 MG IV IV SCH (09:23)
[2018-06-08] MEDS: FUROSEMIDE 20 MG/2 ML IV SCH (09:23)
--- NOTE | 2018-06-08 11:38 | NUR ---
REC PUREE/THIN; swallow precautions sheet posted at bedside Addendum: 06/08/18 at [address] Amended: Links added.
[2018-06-08 12:48] VITALS: BP 114/72
[2018-06-08 19:59] VITALS: BP 105/67
[2018-06-09 02:00] VITALS: BP 101/66
[2018-06-09 06:17] LABS: BASOPHILS # (AUTO) 0.03 x10^3/uL (0-0.1); BASOPHILS % (AUTO) 0 % (0-1); EOSINOPHILS # (AUTO) 0.22 x10^3/uL (0-0.4); EOSINOPHILS % (AUTO) 3 % (1-7); LYMPHOCYTES # (AUTO) 0.37 x10^3/uL (1-3.4); LYMPHOCYTES % (AUTO) 4 % (22-44); MD NO; MEAN CORPUSCULAR HEMOGLOBIN 31.3 pg (27.5-34.5); MEAN CORPUSCULAR HGB CONC 32.9 g/dL (33.2-36.2); MEAN CORPUSCULAR VOLUME 95.1 fL (81-97); MEAN PLATELET VOLUME 9.4 fL (7.4-10.4); MONOCYTES # (AUTO) 0.45 x10^3/uL (0.2-0.8); MONOCYTES % (AUTO) 5 % (2-9); NEUTROPHILS # (AUTO) 7.68 x10^3/uL (1.8-6.8); NEUTROPHILS % (AUTO) 88 % (42-75); PLATELET COUNT 184 x10^3/uL (130-400); RED BLOOD COUNT 3.97 x10^6/uL (4.38-5.82); RED CELL DISTRIBUTION WIDTH 16.5 % (9.4-14.8)
[2018-06-09 06:23] LABS: ANION GAP 4 mmol/L (5-15); CALCIUM 8.9 mg/dL (8.5-10.1); CHLORIDE 107 mmol/L (98-107)
[2018-06-09 06:24] LABS: CREATININE 1.16 mg/dL (0.7-1.3)
[2018-06-09 07:21] VITALS: BP 104/69
[2018-06-09] MEDS: FUROSEMIDE 20 MG/2 ML IV SCH (10:30)
[2018-06-09] MEDS: PANTOPRAZOLE 40 MG IV IV SCH (10:30)
[2018-06-09] MEDS: AMIODARONE 200 MG TABLET PO SCH ×2 (10:31→21:47)
[2018-06-09] MEDS: ENOXAPARIN 100 MG/ML SQ SCH ×2 (11:29→21:00)
[2018-06-09] MEDS: FUROSEMIDE 40 MG TABLET PO SCH (11:30)
[2018-06-09 13:42] VITALS: BP 100/64
[2018-06-09 18:29] VITALS: BP 106/71
[2018-06-09 20:36] VITALS: BP 107/71
[2018-06-10 00:03] VITALS: BP 103/70
[2018-06-10] MEDS: PANTOPROZOLE 40MG TABLET PO SCH (05:43)
[2018-06-10 06:35] LABS: BASOPHILS % (AUTO) 0 % (0-1); EOSINOPHILS # (AUTO) 0.05 x10^3/uL (0-0.4); EOSINOPHILS % (AUTO) 1 % (1-7); LYMPHOCYTES # (AUTO) 0.38 x10^3/uL (1-3.4); LYMPHOCYTES % (AUTO) 5 % (22-44); MD NO; MEAN CORPUSCULAR HEMOGLOBIN 31.5 pg (27.5-34.5); MEAN CORPUSCULAR HGB CONC 33.1 g/dL (33.2-36.2); MEAN CORPUSCULAR VOLUME 95.2 fL (81-97); MEAN PLATELET VOLUME 9.2 fL (7.4-10.4); MONOCYTES # (AUTO) 0.42 x10^3/uL (0.2-0.8); MONOCYTES % (AUTO) 5 % (2-9); NEUTROPHILS # (AUTO) 7.51 x10^3/uL (1.8-6.8); NEUTROPHILS % (AUTO) 90 % (42-75); PLATELET COUNT 209 x10^3/uL (130-400); RED BLOOD COUNT 3.96 x10^6/uL (4.38-5.82); RED CELL DISTRIBUTION WIDTH 16.6 % (9.4-14.8)
[2018-06-10 06:46] LABS: ANION GAP 4 mmol/L (5-15); CALCIUM 8.9 mg/dL (8.5-10.1); CHLORIDE 105 mmol/L (98-107); CREATININE 1.39 mg/dL (0.7-1.3)
[2018-06-10 07:21] VITALS: BP 110/74
[2018-06-10] MEDS: ENOXAPARIN 100 MG/ML SQ SCH (09:00)
[2018-06-10] MEDS: AMIODARONE 200 MG TABLET PO SCH ×2 (09:59→20:37)
[2018-06-10] MEDS: FUROSEMIDE 40 MG TABLET PO SCH (10:00)
[2018-06-10 14:21] VITALS: BP 104/72
[2018-06-10 18:57] VITALS: BP 97/59
[2018-06-10 20:36] VITALS: BP 100/68
[2018-06-11 02:18] VITALS: BP 99/64
[2018-06-11 05:41] LABS: BASOPHILS # (AUTO) 0.01 x10^3/uL (0-0.1); BASOPHILS % (AUTO) 0 % (0-1); EOSINOPHILS # (AUTO) 0.02 x10^3/uL (0-0.4); EOSINOPHILS % (AUTO) 0 % (1-7); LYMPHOCYTES # (AUTO) 0.45 x10^3/uL (1-3.4); LYMPHOCYTES % (AUTO) 5 % (22-44); MD NO; MEAN CORPUSCULAR HEMOGLOBIN 31.1 pg (27.5-34.5); MEAN CORPUSCULAR HGB CONC 32.8 g/dL (33.2-36.2); MEAN PLATELET VOLUME 9.8 fL (7.4-10.4); MONOCYTES # (AUTO) 0.43 x10^3/uL (0.2-0.8); MONOCYTES % (AUTO) 5 % (2-9); NEUTROPHILS # (AUTO) 7.38 x10^3/uL (1.8-6.8); NEUTROPHILS % (AUTO) 89 % (42-75); PLATELET COUNT 203 x10^3/uL (130-400); RED BLOOD COUNT 3.86 x10^6/uL (4.38-5.82); RED CELL DISTRIBUTION WIDTH 16.6 % (9.4-14.8)
[2018-06-11 05:53] LABS: CHLORIDE 105 mmol/L (98-107)
[2018-06-11 06:10] LABS: ANION GAP 7 mmol/L (5-15); CALCIUM 8.6 mg/dL (8.5-10.1); CREATININE 1.66 mg/dL (0.7-1.3); TRIGLYCERIDES 92 mg/dL (50-200)
[2018-06-11] MEDS: PANTOPROZOLE 40MG TABLET PO SCH (06:29)
[2018-06-11 08:07] VITALS: BP 99/67
[2018-06-11] MEDS: AMIODARONE 200 MG TABLET PO SCH ×2 (08:28→20:05)
[2018-06-11] MEDS: FUROSEMIDE 40 MG TABLET PO SCH (08:28)
[2018-06-11] MEDS ORDERED: LIDOCAINE-MPF 1%, 5ML ONE (10:40)
[2018-06-11 11:06] LABS: ALBUMIN 2.8 g/dL (3.4-5.0)
[2018-06-11 11:07] LABS: TOTAL PROTEIN 6.3 g/dL (6.4-8.2)
[2018-06-11] MEDS: PIPERACILLIN/TAZO/PMX 3.375GM 50 ML IV SCH ×2 (12:49→19:16)
[2018-06-11 13:33] VITALS: BP 100/66
[2018-06-11 19:03] VITALS: BP 92/54
[2018-06-11] MEDS ORDERED: FUROSEMIDE 40 MG TABLET PO SCH (21:00)
[2018-06-12 01:30] VITALS: BP 100/67
[2018-06-12] MEDS: PIPERACILLIN/TAZO/PMX 3.375GM 50 ML IV SCH (03:06)
[2018-06-12 05:33] LABS: BASOPHILS # (AUTO) 0.01 x10^3/uL (0-0.1); BASOPHILS % (AUTO) 0 % (0-1); EOSINOPHILS # (AUTO) 0.13 x10^3/uL (0-0.4); EOSINOPHILS % (AUTO) 2 % (1-7); LYMPHOCYTES # (AUTO) 0.37 x10^3/uL (1-3.4); LYMPHOCYTES % (AUTO) 5 % (22-44); MD NO; MEAN CORPUSCULAR HEMOGLOBIN 31.5 pg (27.5-34.5); MEAN CORPUSCULAR HGB CONC 33.3 g/dL (33.2-36.2); MEAN CORPUSCULAR VOLUME 94.5 fL (81-97); MEAN PLATELET VOLUME 9.7 fL (7.4-10.4); MONOCYTES # (AUTO) 0.34 x10^3/uL (0.2-0.8); MONOCYTES % (AUTO) 4 % (2-9); NEUTROPHILS % (AUTO) 90 % (42-75); PLATELET COUNT 228 x10^3/uL (130-400); RED BLOOD COUNT 3.93 x10^6/uL (4.38-5.82); RED CELL DISTRIBUTION WIDTH 16.5 % (9.4-14.8)
[2018-06-12 05:49] LABS: ANION GAP 6 mmol/L (5-15); CALCIUM 8.3 mg/dL (8.5-10.1); CHLORIDE 105 mmol/L (98-107)
[2018-06-12 05:52] LABS: CREATININE 1.87 mg/dL (0.7-1.3)
[2018-06-12 07:42] VITALS: BP 95/62
[2018-06-12] MEDS: PANTOPROZOLE 40MG TABLET PO SCH (08:55)
[2018-06-12] MEDS: AMIODARONE 200 MG TABLET PO SCH ×2 (08:55→20:38)
[2018-06-12] MEDS ORDERED: FUROSEMIDE 40 MG TABLET PO SCH (09:00)
[2018-06-12] MEDS: AMOXICILLIN/CLAV 875-125MG TABLET PO SCH ×2 (09:21→20:38)
[2018-06-12 12:49] VITALS: BP 101/68
[2018-06-12] MEDS ORDERED: FURO20TA3 PO (15:50)
[2018-06-12] MEDS ORDERED: AMIO200T42 PO (15:50)
[2018-06-12] MEDS ORDERED: AMOX1TAB12 PO (15:50)
[2018-06-12] MEDS ORDERED: ASPI-650 PO (15:50)
[2018-06-12] MEDS ORDERED: FUROSEMIDE 20 MG TABLET PO ONE (16:00)
[2018-06-12 19:01] VITALS: BP 96/64
[2018-06-13 01:29] VITALS: BP 99/64
[2018-06-13 05:18] LABS: BASOPHILS # (AUTO) 0.02 x10^3/uL (0-0.1); BASOPHILS % (AUTO) 0 % (0-1); EOSINOPHILS % (AUTO) 0 % (1-7); LYMPHOCYTES # (AUTO) 0.48 x10^3/uL (1-3.4); LYMPHOCYTES % (AUTO) 6 % (22-44); MD NO; MEAN CORPUSCULAR HEMOGLOBIN 31.2 pg (27.5-34.5); MEAN CORPUSCULAR HGB CONC 32.8 g/dL (33.2-36.2); MEAN CORPUSCULAR VOLUME 95.1 fL (81-97); MEAN PLATELET VOLUME 9.6 fL (7.4-10.4); MONOCYTES # (AUTO) 0.47 x10^3/uL (0.2-0.8); MONOCYTES % (AUTO) 6 % (2-9); NEUTROPHILS # (AUTO) 6.68 x10^3/uL (1.8-6.8); NEUTROPHILS % (AUTO) 87 % (42-75); PLATELET COUNT 280 x10^3/uL (130-400); RED BLOOD COUNT 3.85 x10^6/uL (4.38-5.82); RED CELL DISTRIBUTION WIDTH 15.9 % (9.4-14.8)
[2018-06-13 05:21] LABS: ANION GAP 3 mmol/L (5-15); CALCIUM 8.5 mg/dL (8.5-10.1); CHLORIDE 105 mmol/L (98-107)
[2018-06-13] MEDS: PANTOPROZOLE 40MG TABLET PO SCH (05:43)
[2018-06-13 07:19] VITALS: BP 99/67
[2018-06-13] MEDS: AMOXICILLIN/CLAV 875-125MG TABLET PO SCH (07:51)
[2018-06-13] MEDS: AMIODARONE 200 MG TABLET PO SCH (07:52)
[2018-06-13] MEDS ORDERED: ASPIRIN 325 MG TABLET EC PO SCH (09:00)
[2018-06-13] MEDS ORDERED: FUROSEMIDE 20 MG TABLET PO SCH (09:00)
== END 2018-06-13 12:30 | DRG 853 ==
LOC: ED 04:45 → EDIP 04:50 → ED 05:00 → ICU 17:59 → CCU 05-31 17:01 → 4EST 06-03 15:52 → 4WST 06-03 16:58 → 4EST 06-03 16:59 → 3NE 06-10 22:47
PROVIDERS: ADMIT Family Medicine; ATTEND Internal Medicine
PROC: 0BH18EZ Insertion of Endotracheal Airway into Trachea, Via Natural or Artificial Opening Endoscopic (ICD-10-PCS; 2018-05-27)
PROC: 0D1B0Z4 Bypass Ileum to Cutaneous, Open Approach (ICD-10-PCS; 2018-05-27)
PROC: 0DTF0ZZ Resection of Right Large Intestine, Open Approach (ICD-10-PCS; 2018-05-27)
PROC: 02H633Z Insertion of Infusion Device into Right Atrium, Percutaneous Approach (ICD-10-PCS; 2018-05-27)
PROC: B244ZZZ Ultrasonography of Right Heart (ICD-10-PCS; 2018-05-27)
PROC: 5A09357 Assistance with Respiratory Ventilation, Less than 24 Consecutive Hours, Continuous Positive Airway Pressure (ICD-10-PCS; 2018-05-27)
PROC: 0DTL0ZZ Resection of Transverse Colon, Open Approach (ICD-10-PCS; 2018-05-27)
PROC: 0DTG0ZZ Resection of Left Large Intestine, Open Approach (ICD-10-PCS; 2018-05-27)
PROC: 5A1955Z Respiratory Ventilation, Greater than 96 Consecutive Hours (ICD-10-PCS; principal; 2018-05-27 16:00)
PROC: 0W993ZZ Drainage of Right Pleural Cavity, Percutaneous Approach (ICD-10-PCS; 2018-06-11)
DX: A41.9 Sepsis, unspecified organism (principal); J96.02 Acute respiratory failure with hypercapnia; J96.01 Acute respiratory failure with hypoxia; G93.41 Metabolic encephalopathy; R65.21 Severe sepsis with septic shock; N17.0 Acute kidney failure with tubular necrosis; J15.9 Unspecified bacterial pneumonia; I21.9 Acute myocardial infarction, unspecified; K56.2 Volvulus; Z99.11 Dependence on respirator [ventilator] status; K59.39 Other megacolon; I50.42 Chronic combined systolic (congestive) and diastolic (congestive) heart failure; I47.2 Ventricular tachycardia; J44.0 Chronic obstructive pulmonary disease with (acute) lower respiratory infection; I13.0 Hypertensive heart and chronic kidney disease with heart failure and stage 1 through stage 4 chronic kidney disease, or unspecified chronic kidney disease; D68.59 Other primary thrombophilia; E87.2 Acidosis; E78.00 Pure hypercholesterolemia, unspecified; E66.9 Obesity, unspecified; E78.5 Hyperlipidemia, unspecified; R13.10 Dysphagia, unspecified; N18.3 Chronic kidney disease, stage 3 (moderate); I48.0 Paroxysmal atrial fibrillation; I49.3 Ventricular premature depolarization; I34.0 Nonrheumatic mitral (valve) insufficiency; I25.10 Atherosclerotic heart disease of native coronary artery without angina pectoris; E87.5 Hyperkalemia; Z90.49 Acquired absence of other specified parts of digestive tract; Z79.01 Long term (current) use of anticoagulants; Z95.1 Presence of aortocoronary bypass graft
CPT/HCPCS: 31500; 32555; 36415; 36556; 36600; 70450; 71045; 74018; 74176; 74230; 80048; 80053; 81001; 82040; 82330; 82803; 82945; 82947; 82962; 83605; 83615; 83735; 83880; 84100; 84132; 84134; 84155; 84157; 84295; 84443; 84478; 84484; 85014; 85018; 85025; 85610; 85730; 86850; 86900; 86923; 87040; 87070; 87075; 87077; 87081; 87086; 87186; 87205; 87324; 88112; 88307; 89051; 93005; 93306; 94002; 94003; 94640; 96361; 96365; 96366; 96368; 96375; G0378; J0610; J0696; J1644; J1650; J1815; J1940; J2250; J2543; J2704; J3010; J3370; J3475; J3480; P9047; C9113; J0282; J0330; J2920; J2930; J3420; J7030; J7040; J7050; J7060; J7120